=== PATIENT | female | born 2005 ===

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

== ENCOUNTER → 2024-01-04 | Outpatient (CLI) | payer SELFPAY ==
[2024-01-04 17:31] LABS: AST-SGOT 18 U/L (5-34)
[2024-01-04 17:53] LABS: BASO # 0.03 K/mm3 (0.02-0.10); EOS # 0.05 K/mm3 (0.04-0.40); EOS % 0.6 % (0.1-4.0); HEMATOCRIT 37.4 % (35.0-45.0); HEMOGLOBIN 12.3 g/dL (12.0-15.0); LYMPH# 3.46 K/mm3 (1.20-3.40); MEAN CELL VOLUME 93 fl (78-95); MEAN CORPUSCULAR HEMOGLOBIN 31 pg (26-32); MEAN CORPUSCULAR HGB CONC 33 g/dL (33-37); MEAN PLATELET VOLUME 11.3 fl (7.4-10.4); MONO # 0.47 K/mm3 (0.10-0.60); NEU # 3.94 K/mm3 (1.40-6.50); PLATELET COUNT 253 K/mm3 (130-400); RED BLOOD COUNT 4.01 M/mm3 (4.10-5.30); RED CELL DISTRIBUTION WIDTH 13.8 % (11.5-14.5)
== END ==
LOC: LAB 16:46
PROVIDERS: Nurse Practitioner Family
DX: Z51.81 Encounter for therapeutic drug level monitoring (principal); Z79.899 Other long term (current) drug therapy